=== PATIENT | female | born 1970 | race Caucasian/White ===

== ENCOUNTER → 2024-04-06 | Outpatient (CLI) | payer OTHER ==
--- NOTE | 2024-04-07 10:12 | MM ---
Reason for Exam: Screening (asymptomatic). Patient History: Menarche at age 12. First Full-Term at age 21. Risk Values: Beth 5 year model risk: 1.0%. NCI Lifetime model risk: 7.5%. Prior Study Comparison: No prior studies available for comparison. Tissue Density: The breasts are heterogeneously dense, which may obscure small masses. Findings: Analyzed By CAD. There is no suspicious group of microcalcifications or new suspicious mass in either breast. Overall Assessment: Benign, BI-RAD 2 Management: Screening Mammogram of both breasts in 1 year. . Patient should continue monthly self-breast exams. A clinical breast exam by your physician is recommended on an annual basis. This exam should not preclude additional follow-up of suspicious palpable abnormalities. Note on Beth scores and lifetime risk: 1. A Beth score greater than 3% is considered moderate risk. If this is the case, consider specialist referral to assess eligibility for a risk reducing agent. 2. If overall lifetime risk for the development of breast cancer is 20% or higher, the patient may qualify for future screening with alternating mammogram and breast MRI. [facility], , 04/07/2024 10:08 AM. Electronically signed and approved by: Octavio Jaimes M.D. Radiologis
== END | disposition home or self-care (01) ==
LOC: RADMAMWWP 08:23
PROVIDERS: ATTEND Family Medicine
DX: Z12.31 Encounter for screening mammogram for malignant neoplasm of breast (principal); R92.333 Mammographic heterogeneous density, bilateral breasts
CPT/HCPCS: 77067

== ENCOUNTER 2024-08-13 11:29 | Day surgery (SDC) | payer OTHER ==
[2024-08-12 09:55] VITALS: BMI 33.7
[~2024-08-13 11:29] MED LIST: LACTATED RINGERS 1,000 ML IV SCH; LIDOCAINE 1% (10MG/ML) FOR IV START INTRADERMA PRN; ONDANSETRON 4 MG/2 ML VIAL IVP PRN
[2024-08-13 12:06] VITALS: RESP 16; TEMP 97.3
[2024-08-13] MEDS: IV FLUID CONTINUATION 1,000 ML IV ONE (12:09)
[2024-08-13] MEDS: LACTATED RINGERS 1,000 ML IV SCH (12:16)
[2024-08-13 12:17] LABS: Glucose,Whole Blood 106 mg/dL (70-110)
[2024-08-13] MEDS ORDERED: LIDOCAINE 1% INJ 10MG/ML (20 ML MDV) ONE (12:34)
[2024-08-13] MEDS ORDERED: PROPOFOL 10 MG/ML 20 ML VIAL IV ONE (12:34)
--- NOTE | 2024-08-13 13:04 | P.GSHP ---
History of Present Illness H&P Date: 08/13/24 Chief Complaint: Colon cancer screening, GERD 54-year-old female here for upper and lower endoscopy. Patient states she has a history of colon polyps. Thinks her last colonoscopy was 5 to 10 years ago. Patient with chronic reflux. Recent CAT scan showed hiatal hernia. Past Medical History Past Medical History: Diabetes Mellitus Additional Past Medical History / Comment(s): hernias History of Any Multi-Drug Resistant Organisms: None Reported Past Surgical History: Appendectomy, Cholecystectomy, Tubal Ligation Additional Past Surgical History / Comment(s): COLONOSCOPY Past Anesthesia/Blood Transfusion Reactions: No Reported Reaction Additional Past Anesthesia/Blood Transfusion Reaction / Comment(s): no blood transfusion Smoking Status: Vaper - Past Family History Brother(s) Family Medical History: Deep Vein Thrombosis (DVT) Medications and Allergies Home Medications Medication Instructions Recorded Confirmed Type Semaglutide [Ozempic] 1 mg SQ TU 07/15/24 08/13/24 History Allergies Allergy/AdvReac Type Severity Reaction Status Date / Time No Known Allergies Allergy Verified 08/13/24 12:04 Surgical - Exam Vital Signs Temp Pulse Resp BP Pulse Ox 97.3 F L 74 16 137/81 98 08/13/24 12:05 08/13/24 12:05 08/13/24 12:05 08/13/24 12:05 08/13/24 12:05 Physical exam: General: Well-developed, well-nourished HEENT: Normocephalic, sclerae nonicteric Abdomen: Nontender, nondistended Extremities: No edema Neuro: Alert and oriented Assessment and Plan (1) Colon cancer screening Narrative/Plan: Will proceed with upper and lower endoscopy Current Visit: Yes Status: Acute Code(s): Z12.11 - ENCOUNTER FOR SCREENING FOR MALIGNANT NEOPLASM OF COLON SNOMED Code(s): 153995702
--- NOTE | 2024-08-13 13:06 | P.PCN ---
Date of Procedure: 08/13/24 Procedure(s) Performed: PREOPERATIVE DIAGNOSIS: GERD, screening POSTOPERATIVE DIAGNOSIS: Mild gastritis, small hiatal hernia, diverticulosis, colon polyps PROCEDURE: 1. EGD with biopsy 2. Colonoscopy with snare polypectomy ANESTHESIA: MAC SURGEON: Humphrey Bynum M.D. SPECIMENS: Antrum, colon polyps ENDOSCOPIC PROCEDURE: The patient was on the endoscopy table in the left decubitus position. The Olympus gastroscope was inserted into the oropharynx and passed under direct visualization to the region of the third portion of the duodenum. From that point the scope was slowly withdrawn inspecting all surfaces carefully. There were no neoplastic inflammatory or polypoid lesions throughout the duodenum. The pylorus was widely patent. The stomach was carefully inspected. There was mild gastritis present. A biopsy of the antrum took place to rule out H. pylori. Retroflexion revealed a small 1 cm hiatal hernia. The esophagus was then carefully examined. There were no neoplastic inflammatory or polypoid lesions throughout the visualized esophagus. The patient was kept on the endoscopy table in the left decubitus position. The Olympus colonoscope was inserted into the anus and passed under direct visualization to the base of the cecum. The appendiceal orifice was visualized. From that point the scope was slowly withdrawn inspecting all surfaces carefully. There was a small polyp on the ileocecal valve itself that was removed using the snare with cautery technique. The remainder of the cecum and ascending colon appeared normal. In the transverse colon a small polyp was again noted and removed using the snare with polypectomy technique. The remainder of the transverse and descending colon appeared normal. In the sigmoid colon an additional polyp was seen and removed in a similar fashion. The remainder of the sigmoid and rectum was normal. There is mild scattered diverticulosis. Digital rectal examination was normal. The patient was taken to the recovery room in stable condition per anesthesia guidelines. RECOMMENDATIONS: Await biopsy results. Anticipate repeat colonoscopy 5 years from
[2024-08-13 13:33] VITALS: BP 130/77; PULSE 87
== END 2024-08-13 13:59 | disposition home or self-care (01) ==
LOC: ORWHC2ENDO 11:29
PROVIDERS: ATTEND Surgery
DX: Z12.11 Encounter for screening for malignant neoplasm of colon (principal); K29.50 Unspecified chronic gastritis without bleeding; D12.5 Benign neoplasm of sigmoid colon; D12.0 Benign neoplasm of cecum; K44.9 Diaphragmatic hernia without obstruction or gangrene; K57.30 Diverticulosis of large intestine without perforation or abscess without bleeding; Z86.0100 Personal history of colon polyps, unspecified; E11.9 Type 2 diabetes mellitus without complications; K21.9 Gastro-esophageal reflux disease without esophagitis
CPT/HCPCS: 88305; 45385; 43239; J2003; J2704

== ENCOUNTER → 2024-09-16 | Outpatient (CLI) | payer OTHER ==
[2024-09-16 08:18] LABS: African American GFR (CKD) >90 (>60 ml/min/1.73 sqM); Blood Urea Nitrogen 17 mg/dL (7-17); Non-African American GFR(CKD) >90 (>60 ml/min/1.73 sqM)
--- NOTE | 2024-09-16 10:05 | CT ---
EXAMINATION TYPE: CT abdomen pelvis wo/w con DATE OF EXAM: 09/16/2024 9:36 AM COMPARISON: The CLINICAL INDICATION: Female, 54 years old with history of R87.811, R82.89, abnormal labs TECHNIQUE:CT scan of the abdomen and pelvis is performed with Oral Contrast and with IV Contrast, pat ient injected with 100 mL of Isovue 300. CT DLP: 2401.7 mGycm, Automated exposure control for dose reduction was used. FINDINGS: LUNG BASES-: No visible nodule. No infiltrate. LIVER/GB: Gallbladder surgically absent. No space occupying hepatic lesion. Biliary tree is of nor mal caliber. PANCREAS: No inflammation. No distinct mass. SPLEEN: No splenic enlargement. No lesion seen. ADRENALS: No nodule. No thickening. KIDNEYS/BLADDER: No hydronephrosis. No nephrolithiasis. No distinct renal mass. Urinary bladder g rossly unremarkable. BOWEL: The appendix is surgically absent. Normal bowel caliber. No inflammation. GENITAL ORGANS: No gross abnormality. LYMPH NODES: No greater than 1cm abdominal or pelvic lymph nodes are appreciated. AORTA: No significant abnormality. OSSEOUS STRUCTURES: No significant abnormality is seen. OTHER: No significant additional abnormality is seen. IMPRESSION: 1. No significant abnormality to account for the patient's symptoms. [facility], , 09/16/2024 10:03 AM
== END | disposition home or self-care (01) ==
LOC: RADCTMAIN 07:31
PROVIDERS: ATTEND Family Medicine
DX: R87.811 Vaginal high risk human papillomavirus (HPV) DNA test positive (principal); R82.89 Other abnormal findings on cytological and histological examination of urine
CPT/HCPCS: 82565; 84520; 74178; 36415; Q9967

== ENCOUNTER 2024-12-18 12:24 | Emergency (ER) | payer OTHER ==
--- NOTE | 2024-12-18 12:52 | ED ---
General Adult HPI - General Chief complaint: Headache Stated complaint: Headache-Post bat bite Time Seen by Provider: 12/18/24 12:34 Source: patient, RN notes reviewed Mode of arrival: ambulatory Limitations: no limitations - History of Present Illness Initial comments: This is a 54-year-old female with no pertinent past medical conditions presenting to the emergency department for complaints of a headache. Patient reports that on 11/21/2024 she was walking out to her mailbox when it was raining and hit her head into a tree. She states that she reached to the back of her head and there was a bat that fell off onto the ground. Patient denies getting bit by the bat at this time. She states that a week after the bite occurred she started having a persistent headache prompting her to go to the emergency department. At this time patient was provided with the rabies vaccination series however the medication was not injected into her scalp therefore the series had to be restarted. Patient has finished the rabies vaccination series on 12/16/2024. Patient is presenting for further evaluation of persistent headache she has been experiencing and ringing in her ears. Patient has followed with a neurologist and is scheduled for an occipital nerve block. She denies blurry/double vision, neck pain, visual disturbances, cough, chest pain, rhinorrhea. - Related Data Home Medications Medication Instructions Recorded Confirmed Semaglutide [Ozempic] 1 mg SQ TU 07/15/24 12/09/24 Allergies Allergy/AdvReac Type Severity Reaction Status Date / Time No Known Allergies Allergy Verified 12/18/24 12:31 Review of Systems ROS Statement: Those systems with pertinent positive or pertinent negative responses have been documented in the HPI. ROS Other: All systems not noted in ROS Statement are negative. Past Medical History Past Medical History: Diabetes Mellitus Additional Past Medical History / Comment(s): hernias History of Any Multi-Drug Resistant Organisms: None Reported Past Surgical History: Appendectomy, Cholecystectomy, Tubal Ligation Additional Past Surgical History / Comment(s): COLONOSCOPY Past Anesthesia/Blood Transfusion Reactions: No Reported Reaction Additional Past Anesthesia/Blood Transfusion Reaction / Comment(s): no blood transfusion Past Psychological History: No Psychological Hx Reported Smoking Status: Vaper Past Alcohol Use History: None Reported Past Drug Use History: None Reported - Past Family History Brother(s) Family Medical History: Deep Vein Thrombosis (DVT) General Exam Limitations: no limitations ENT exam: Present: normal exam, mucous membranes moist Neck exam: Present: normal inspection. Absent: tenderness, meningismus, lymphadenopathy Respiratory exam: Present: normal lung sounds bilaterally. Absent: respiratory distress, wheezes, rales, rhonchi, stridor Cardiovascular Exam: Present: regular rate, normal rhythm, normal heart sounds. Absent: systolic murmur, diastolic murmur, rubs, gallop, clicks GI/Abdominal exam: Present: soft, normal bowel sounds. Absent: distended, tenderness, guarding, rebound, rigid Extremities exam: Present: normal inspection, full ROM, normal capillary refill. Absent: tenderness, pedal edema, joint swelling, calf tenderness Back exam: Present: normal inspection Course Vital Signs 12/18/24 12/18/24 12/18/24 12:26 14:51 15:49 Temperature 97.7 F 98 F 97.9 F Pulse Rate 80 72 70 Respiratory 18 16 16 Rate Blood Pressure 136/83 145/87 140/86 O2 Sat by Pulse 100 100 100 Oximetry Medical Decision Making - Medical Decision Making Was pt. sent in by a medical professional or institution (, PA, PATIENT RELATIONS REPRESENTATIVE, urgent care, hospital, or skilled nursing...) When possible be specific @ -No Did you speak to anyone other than the patient for history (EMS, parent, family, police, friend...)? What history was obtained from this source @ -No Did you review nursing and triage notes (agree or disagree)? Why? @ -I reviewed and agree with nursing and triage notes Were old charts reviewed (outside hosp., previous admission, EMS record, old EKG , old radiological studies, urgent care reports/EKG's, skilled nursing records)? Report findings @ -No old charts were reviewed Differential Diagnosis (chest pain, altered mental status, abdominal pain women, abdominal pain men, vaginal bleeding, weakness, fever, dyspnea, syncope, headache, dizziness, GI bleed, back pain, seizure, CVA, palpatations, mental health, musculoskeletal)? @ -Differential Headache: Migraine, tension, cluster, carbon monoxide, central venous thrombosis, pension karma temporal arteritis, acute closure glaucoma, intercranial hemorrhage, mastoiditis, sinusitis, head injury, this is not meant to be an all-inclusive list. EKG interpreted by me (3pts min.). @ -none X-rays interpreted by me (1pt min.). @ -None done CT interpreted by me (1pt min.). @ -CT of the brain without contrast reveals no acute intracranial process U/S interpreted by me (1pt. min.). @ -None done What testing was considered but not performed or refused? (CT, X-rays, U/S, labs )? Why? @ -None What meds were considered but not given or refused? Why? @ -None Did you discuss the management of the patient with other professionals (professionals i.e. , PA, PATIENT RELATIONS REPRESENTATIVE, lab, RT, psych nurse, social service coordinator, retail tire sales manager, teacher, chief lifestyle officer, case briefer)? Give summary @ -No Was smoking cessation discussed for >3mins.? @ -No Was critical care preformed (if so, how long)? @ -No Were there social determinants of health that impacted care today? How? (Homelessness, low income, unemployed, alcoholism, drug addiction, transportation, low edu. Level, literacy, decrease access to med. care, [facility], rehab)? @ -No Was there de-escalation of care discussed even if they declined (Discuss DNR or withdrawal of care, Hospice)? DNR status @ -No What co-morbidities impacted this encounter? (DM, HTN, Smoking, COPD, CAD, Cancer, CVA, ARF, Chemo, Hep., AIDS, mental health diagnosis, sleep apnea, morbid obesity)? @ -None Was patient admitted / discharged? Hospital course, mention meds given and route, prescriptions, significant lab abnormalities, going to OR and other pertinent info. @Discharge. 54-year-old presenting with headache. Overall patient is well- appearing examination bed with no signs of distress. Neurological examination is unremarkable. She is provided with migraine cocktail. CT imaging of the brain reveals no acute process. At reevaluation after medications patient s tates that she was feeling well however still has mild ringing in ears. There is no abnormalities on ENT physical examination. At this time patient stable for discharge with close follow-up as scheduled with neurologist. Return parameters discussed. Case discussed with my attending Dr. Orlando Undiagnosed new problem with uncertain prognosis? @ -No Drug Therapy requiring intensive monitoring for toxicity (Heparin, Nitro, Insulin, Cardizem)? @ -No Were any procedures done? @ -No Diagnosis/symptom? @ -headache Acute, or Chronic, or Acute on Chronic? @ -acute Uncomplicated (without systemic symptoms) or Complicated (systemic symptoms)? @ -uncomplicated Side effects of treatment? @ -No Exacerbation, Progression, or Severe Exacerbation? @ -No Poses a threat to life or bodily function? How? (Chest pain, [place], [place], pneumonia, PE, COPD, DKA, ARF, appy, cholecystitis, CVA, Diverticulitis, Homicidal, Suicidal, threat to staff... and all critical care pts) @ -No - Lab Data Result diagrams: 12/18/24 12:59 12/18/24 12:59 Lab Results 12/18/24 12/18/24 Range/Units 12:59 12:59 WBC 8.75 (4.50-10.00) 10*3/uL RBC 4.20 (4.10-5.20) 10*6/uL Hgb 12.9 (12.0-15.0) g/dL Hct 38.6 (37.2-46.3) % MCV 91.9 (80.0-97.0) fL MCH 30.7 (27.0-32.0) pg MCHC 33.4 (32.0-37.0) g/dL Plt Count 390 (140-440) 10*3/uL MPV 8.9 L (9.5-12.2) fL Immature Gran % (Auto) 0.3 % Neutrophils % 50.8 % Lymphocytes % 41.3 % Monocytes % 6.3 % Eosinophils % 0.7 % Basophils % 0.6 % Immature Gran # 0.03 (0.00-0.04) 10*3/uL Neutrophils # 4.45 (1.80-7.70) 10*3/uL Lymphocytes # 3.61 (0.90-5.00) 10*3/uL Monocytes # 0.55 (0.20-1.00) 10*3/uL Eosinophils # 0.06 (0.04-0.35) 10*3/uL Basophils # 0.05 (0.00-0.10) 10*3/uL Sodium 138 (137-145) mmol/L Potassium 4.1 (3.5-5.1) mmol/L Chloride 103 (98-107) mmol/L Carbon Dioxide 25 (22-30) mmol/L Anion Gap 10 mmol/L BUN 18 H (7-17) mg/dL Creatinine 0.62 (0.52-1.04) mg/dL Est GFR (CKD-EPI)AfAm >90 (>60 ml/min/1.73 sqM) Est GFR (CKD-EPI)NonAf >90 (>60 ml/min/1.73 sqM) Glucose 94 (74-99) mg/dL Calcium 9.7 (8.4-10.2) mg/dL Total Bilirubin 0.5 (0.2-1.3) mg/dL AST 18 (14-36) U/L ALT 25 (4-34) U/L Alkaline Phosphatase 93 (38-126) U/L Total Protein 6.9 (6.3-8.2) g/dL Albumin 4.4 (3.5-5.0) g/dL Disposition Clinical Impression: Headache Disposition: HOME SELF-CARE Condition: Good Instructions (If sedation given, give patient instructions): Acute Headache (ED) Additional Instructions: Please return to the Emergency Department if symptoms worsen or any other concerns. Is patient prescribed a controlled substance at d/c from ED?: No Referrals: Penny Cerna MD [Primary Care Provider] - 1-2 days Time of Disposition: 14:10
[2024-12-18] MEDS: SODIUM CHLORIDE 0.9% 1,000 ML IV STA (13:05)
[2024-12-18] MEDS: ACETAMINOPHEN TAB 500 MG TAB PO STA (13:05)
[2024-12-18 13:14] LABS: Basophils # (A) 0.05 10*3/uL (0.00-0.10); Basophils % (A) 0.6 %; Eosinophils # (A) 0.06 10*3/uL (0.04-0.35); Eosinophils % (A) 0.7 %; HCT 38.6 % (37.2-46.3); HGB 12.9 g/dL (12.0-15.0); Lymphocytes # (A) 3.61 10*3/uL (0.90-5.00); Lymphocytes % (A) 41.3 %; MCH 30.7 pg (27.0-32.0); MCHC 33.4 g/dL (32.0-37.0); MCV 91.9 fL (80.0-97.0); Monocytes # (A) 0.55 10*3/uL (0.20-1.00); Monocytes % (A) 6.3 %; Neutrophils # (A) 4.45 10*3/uL (1.80-7.70); Neutrophils % (A) 50.8 %; Platelet Count 390 10*3/uL (140-440); RBC 4.20 10*6/uL (4.10-5.20); RDW 12.6 % (11.5-14.5); WBC 8.75 10*3/uL (4.50-10.00)
[2024-12-18] MEDS: CAFFEINE-SODIUM BENZOATE 500 MG in SODIUM CHLORIDE 0.9% 1,000 ML IVPB ONE (13:39)
[2024-12-18 13:45] LABS: ALT 25 U/L (4-34); AST 18 U/L (14-36); African American GFR (CKD) >90 (>60 ml/min/1.73 sqM); Albumin 4.4 g/dL (3.5-5.0); Alkaline Phosphatase 93 U/L (38-126); Anion Gap 10 mmol/L; Blood Urea Nitrogen 18 mg/dL (7-17); Calcium 9.7 mg/dL (8.4-10.2); Carbon Dioxide 25 mmol/L (22-30); Chloride 103 mmol/L (98-107); Glucose 94 mg/dL (74-99); Non-African American GFR(CKD) >90 (>60 ml/min/1.73 sqM); Potassium 4.1 mmol/L (3.5-5.1); Sodium 138 mmol/L (137-145); Total Protein 6.9 g/dL (6.3-8.2)
[2024-12-18] MEDS: KETOROLAC 15 MG/ML 1 ML VIAL IVP STA (13:49)
[2024-12-18] MEDS: DEXAMETHASONE SOD PHOSPHATE 10 MG/ML 1 ML VIAL IVP STA (13:50)
--- NOTE | 2024-12-18 13:52 | CT ---
EXAMINATION TYPE: CT brain wo con DATE OF EXAM: 12/18/2024 1:41 PM COMPARISON: None. CLINICAL INDICATION: Female, 54 years old with history of Headache, Headache since November 21 TECHNIQUE: CT of the brain is performed utilizing 3 mm thick sections through the posterior fossa and 3 mm thick sections through the remaining calvarium. Study is performed within 24 hours of arrival to the hospital. Contrast used: mL of , (none if empty) CT DLP: 1097.8 mGycm, Automated exposure control for dose reduction was used. FINDINGS: No abnormal hyperdensity is present to suggest an acute intracranial hemorrhage. No mass lesion is evident. No acute infarcts are evident. Ventricles and sulci are appropriate for the patient age. There is a retention cyst within the posterior inferior right maxillary sinus. Remaining paranasal si nuses and mastoid air cells are clear. IMPRESSION: 1. No acute intracranial process. Follow up MRI can be performed as clinically indicated. [facility], Workstation: [facility], 12/18/2024 1:50 PM
[2024-12-18 14:54] VITALS: RESP 16
[2024-12-18 15:51] VITALS: BP 140/86; PULSE 70; TEMP 97.9
== END 2024-12-18 15:54 | disposition home or self-care (01) ==
LOC: EC 12:24
DX: R51.9 Headache, unspecified (principal); Z20.3 Contact with and (suspected) exposure to rabies; Z23 Encounter for immunization; F17.290 Nicotine dependence, other tobacco product, uncomplicated; W55.81XA Bitten by other mammals, initial encounter
CPT/HCPCS: 36415; 80053; 85025; 70450; 99284; 96365; 96366; 96375; J1100; J1885